=== PATIENT | female | born 1965 | race Caucasian/White ===

== ENCOUNTER 2016-10-31 16:37 | Emergency (ER) | payer OTHER ==
[~2016-10-31] VITALS: Ht 157.5 cm; Wt 90.9 kg
[2016-10-31 16:50] VITALS: BP 156/97; PULSE 102; RESP 18; O2SAT 96
[2016-10-31 18:31] LABS: BASOPHILS % (AUTO) 0.3 % (0-3); EOSINOPHILS % (AUTO) 0.3 % (0-5); MONOCYTES % (AUTO) 15.2 % (4-12); Mean Corpuscular Hemoglobin 30.1 pg (27.0-35.0); Mean Corpuscular Volume 91.6 fL (81-100); NEUTROPHILS % (AUTO) 52.6 % (40-74); Platelet Count 132 bil/L (150-400)
[2016-10-31] MEDS ORDERED: Thiamine Inj 100 MG, Folic Acid Inj 1 MG, Magnesium Sulfate 50% Inj 2 GM, Multivitamins... IV ONE ×5 (18:55)
--- NOTE | 2016-10-31 18:56 | DRSVH ---
PROCEDURE: X-RAY CHEST, TWO VIEWS ([id number]) INDICATIONS: cough, recent pneumonia TECHNIQUE: 2 views of the chest were acquired. COMPARISON: None. FINDINGS: Surgical changes and devices: None. Lungs and pleura: No pleural effusions or pneumothorax. Lungs are clear. Mediastinum: Mediastinal contours are normal. Heart size is normal. Bones and chest wall: No suspicious bony abnormalities. Soft tissues appear unremarkable. Previous vertebroplasties. IMPRESSION: No acute cardiopulmonary collagen. Dictated by: Leif Victor M.D. on 10/31/2016 at 18:48 Approved by: Leif Victor M.D. on 10/31/2016 at 18:48
[2016-10-31 19:02] LABS: Magnesium 1.9 mg/dL (1.6-2.6)
--- NOTE | 2016-10-31 19:24 | ED.REPORT ---
HPI-General Illness Date of Service Oct 31, 2016 ED Provider: Jax Vanegas DO Pt is a 51 year old female with a history of pneumonia, [place], Hep C, pancreatitis , chronic epistaxis, and cirrhosis who presents to the ED complaining of epistaxis onset last night. The pt was sent from [facility] with c/o cough with blood, hemoptysis, blurred vision, and hallucinations. Pt described her hallucinations as "suarez melting." She reports that she is going through alcohol withdrawals, but is not taking any withdrawal medication. The epistaxis started about 6 months ago with difficulty breathing. She has not seen an ENT specialist. Nursing Notes Stated Complaint: COUGH Chief Complaint: General Complaint Nursing Notes Reviewed: Yes Allergies: Coded Allergies: Penicillins (Verified Allergy, Severe, 10/31/16) Sulfa (Sulfonamide Antibiotics) (Verified Allergy, Severe, 10/31/16) codeine (Verified Allergy, Severe, 10/31/16) droperidol (Verified Allergy, Severe, 10/31/16) prochlorperazine (Verified Allergy, Severe, 10/31/16) zolpidem (Verified Allergy, Severe, 10/31/16) General Time Seen by MD: 18:41 Chief Complaint Other (Epistaxis) Hx Obtained From: Patient Arrived By: Walk-in Sudden in Onset?: No Onset Occurred: Onset unknown Symptom Duration: 9 - 12 hours Severity: Current: No pain currently Severity: Maximum: No pain Recent Healthcare: No recent doctor visit Similar Sx Previous: Yes Past Medical History Past Medical History Pneumonia [place] Hep C Pancreatitis Cirrhosis Epistaxis Past Surgical History Denies Smoking History Former Smoker Social History Goes to [facility] Alcohol Use: >5 per day Ambulatory Status Independent Review of Systems Full Review of Systems Eyes: Reports: Blurred bilateral Ears / Nose / Throat: Reports: Nose bleeding Respiratory: Reports: Hemoptysis, Prod cough, bloody Neurologic: Denies: Shaking Psychiatric: Reports: Hallucinations, visual Complete sys rev & neg: except as marked. Physical Exam Vital Signs Vital Signs Date Time Temp Pulse Resp B/P Pulse Ox O2 Delivery O2 Flow Rate FiO2 10/31/16 23:16 87 14 124/91 95 Room Air 10/31/16 20:09 36.6 82 16 129/72 94 Room Air 10/31/16 16:50 37.0 102 18 156/97 96 Room Air Initial VS: Reviewed Head / Eyes: Atraumatic, Normocephalic, PERRL ENT: Mucous membranes moist, Conjunctiva normal, No scleral icterus Neck: Supple, Full range of motion Respiratory: Breath sounds normal, Clear to auscultation, No respiratory distress Abdomen / GI: Soft, Non-tender Extremities: Vascular intact, Neuro intact Skin: Warm, Dry, No cyanosis Neurologic: Alert, Oriented, Nonfocal Psychiatric: Mood/affect normal, Behavior normal General/Constitutional: Awake, Alert, Cooperative, Not toxic appearing Mild tremor Cardiovascular: Heart rate NL, Regular rhythm, Heart sounds NL Heart Rate / Rhythm: Negative: Tachycardia Not hypertensive Neurologic: Speech NL, No motor deficits Oriented x4 PSYCHIATRIC: Non-specific visual hallucinations with suarez melting Interpretation & Diagnostics CT PULMONARY ANGIOGRAM: CONCLUSION: No evidence of pulmonary embolism. Mild cardiomegaly, diffuse vascular and interstitial prominence in the left lung, nonspecific, cannot rule out mild CHF, pneumonia, and/or edema. Cirrhosis with splenomegaly. Transmitted to the ED at 23:31 by Rachael Buenrostro M.D. Lab Results Interpretation Result Diagram: 10/31/16 1825 10/31/16 1825 Test 10/31/16 18:25 10/31/16 19:35 10/31/16 21:41 White Blood Count 3.4th/mm3 (3.8-10.1) Red Blood Count 4.39mil/mm3 (3.90-5.20) Hemoglobin 13.2g/dL (12.0-15.6) Hematocrit 40.2% (35.0-46.0) Mean Corpuscular Volume 91.6fL (81-100) Mean Corpuscular Hemoglobin 30.1pg (27.0-35.0) Mean Corpuscular Hemoglobin Concent 32.8% (32.0-37.0) Red Cell Distribution Width 18.0% (12.3-15.4) Platelet Count 132bil/L (150-400) Neutrophils (%) (Auto) 52.6% (40-74) Lymphocytes (%) (Auto) 31.6% (14-46) Monocytes (%) (Auto) 15.2% (4-12) Eosinophils (%) (Auto) 0.3% (0-5) Basophils (%) (Auto) 0.3% (0-3) Sodium Level 137mEq/L (134-144) Potassium Level 4.1mEq/L (3.5-5.2) Chloride Level 105mEq/L (97-108) Carbon Dioxide Level 20mmol/L (18-29) Blood Urea Nitrogen 14mg/dL (6-24) Creatinine 0.70mg/dL (0.57-1.00) Estimat Glomerular Filtration Rate 125mL/min (>59) Glucose Level 90mg/dL (60-99) Calcium Level 9.3mg/dL (8.5-10.1) Magnesium Level 1.9mg/dL (1.6-2.6) Total Bilirubin 0.7mg/dL (0.0-1.2) Aspartate Amino Transf (AST/SGOT) 92U/L (0-50) Alanine Aminotransferase (ALT/SGPT) 68U/L (0-32) Alkaline Phosphatase 125U/L (25-150) Ammonia 94ug/dL (18-53) Troponin T 0.010ug/L (0.0-0.011) Pro-B-Type Natriuretic Peptide 20.15pg/mL (0-249) Total Protein 8.8g/dL (6.4-8.4) Albumin 3.4g/dL (3.4-5.0) Procalcitonin 0.04ng/mL (0.00-0.08) Prothrombin Time 11.0sec (8.1-12.5) Prothromb Time International Ratio 1.03ratio D-Dimer 0.54mg/L FEU (<0.50) Hold Urine Received (Received) ECG Interpretation ECG Interpretation: Sinus rhythm with a rate of 84 Time: 18:37 Interpreted by: ED physician X-Ray Chest Interpretation Chest Xray Interpretation: IMPRESSION: No acute cardiopulmonary collagen. Dictated by: Leif Victor M.D. on 10/31/2016 at 18:48 View: AP & lat Interpretation / Wet Read by: Interpret - Radiologist Re-Eval/Medical Decision Med Decision/Clinical Course 51-year-old female came from [facility] where she checked herself in yesterday. She is coughing and she is coughed up some blood/trace hemoptysis. She is found to have pneumonia in the left upper lobe. It appears to be a bit atypical almost like edema. Heart failure labs are negative. PE was ruled out. Laboratory work is normal. Pneumonia severity index score is commensurate with outpatient treatment. Her vitals are normal. She is in no respiratory distress and she certainly needs to complete her course of detox. She received IV antibiotics in the emergency department. She will be placed on Zithromax Z-Michael. Recommended close outpatient follow-up. Ativan taper from the alcohol withdrawal. Repeat x-ray in 4-6 weeks. She is discharged in stable condition looking and feeling much better. Source of Hx: Old records Time of Eval: 00:57 Patient Status: Condition improved Re-Evaluation/Progress Note: Pt rechecked. She is feeling better. Discussed plan for discharge. She is excited to go back to [facility] to continue her detox. Will have close patient follow up. Pt understands and agrees with plan for discharge. F/U instructions and RTER warnings given. All questions addressed. Counseled Regarding: Diagnosis, Lab results, Need for follow-up, When/why to return to ED Discharge & Departure Shift Change Sign-Out Response to Therapy: Improved Primary Impression: Pneumonia Pneumonia type: due to unspecified organism Laterality: left Lung location : upper lobe of lung Qualified Code: J18.1 - Lobar pneumonia, unspecified organism Additional Impressions: Hemoptysis Alcohol withdrawal Complication of substance-induced condition: with perceptual disturbance Qualified Code: F10.232 - Alcohol dependence with withdrawal with perceptual disturbance Disposition: Home Discharge Condition All VS Reviewed: Yes Condition: Stable Patient Instructions: Alcohol Withdrawal (ED), Community Acquired Pneumonia (DC ), Hemoptysis (ED) Additional Instructions: The CAT scan shows edema and infection in your left lung. This is most likely pneumonia. Your heart failure labs were negative. Finished the Z-Michael. Complete the Ativan taper free alcohol withdrawal. I recommended to have a follow-up chest x-ray or chest CT in 4 weeks and after the resolution of symptoms. Set up a follow-up with her primary care physician. Return to the department for any problems or any new or worsening symptoms. Do not drive or drink alcohol or consume any other sedatives will taking the Ativan. Return if you have any shortness of breath or any new or worsening symptoms or feels not significantly improved in 24-48 hours. Regarding the nosebleed I'd like you to follow-up with our ear nose and throat referral as well. Referrals: Juan Carlos Antonio MD [facility] Res[facility] Scribe Attestation Portions of this note were transcribed by Kalina Kirk. I, Dr. Vanegas personally performed the history, physical exam and medical decision-making; I reviewed and confirmed the accuracy of the information in the transcribed note. Signed by: Leonor Montero, 10/31/16 and 21:30 copies to: [facility] Jax Vanegas DO Oct 31, 2016 19:24 Kalina Orantes Oct 31, 2016 20:12
[2016-10-31 20:09] VITALS: BP 129/72; PULSE 82; RESP 16; O2SAT 94
[2016-10-31 20:19] LABS: D-Dimer 0.54 mg/L FEU (<0.50); INR 1.03 ratio
[2016-10-31 23:16] VITALS: BP 124/91; PULSE 87; RESP 14; O2SAT 95
[2016-10-31] MEDS ORDERED: Cefepime Inj 2,000 MG in Dextrose 5% Minibag Plus 100 ML IV ONE (23:50)
[2016-11-01] MEDS ORDERED: oxyCODONE-Acetamin 5-325 mg Tablet PO ONE (00:10)
[2016-11-01 00:22] LABS: TROPONIN T 0.01 ug/L (0.0-0.011)
[2016-11-01] MEDS ORDERED: _Azithromycin 250 mg Tablet PO SCH (00:45)
[2016-11-01] MEDS ORDERED: _LORazepam 2 MG Tablet PO SCH (01:00)
[2016-11-01 01:30] VITALS: BP 110/98; PULSE 82; RESP 14; O2SAT 93
--- NOTE | 2016-11-01 08:10 | DRSVH ---
PROCEDURE: CT ANGIO CHEST PULMONARY EMBOLISM ([id number]) INDICATIONS: 51 year-old woman with hemoptysis and cough. TECHNIQUE: After the administration of intravenous contrast, 2 mm thick sections acquired from the pulmonary api maria antonia to the posterior costophrenic angles. 3-dimensional maximum intensity projection (MIP) coronal a nd sagittal reformats were then acquired through the thorax. For radiation dose reduction, the follo wing was used: automated exposure control, adjustment of mA and/or kV according to patient size. COMPARISON: [facility], CR, XR CHEST 2VW, 10/31/2016, 18:05. FINDINGS: Image quality: Excellent. Pulmonary arteries: Pulmonary arteries are normal in size, and demonstrate no intraluminal filling d efects to suggest central pulmonary embolism. Lungs and pleura: There is mild groundglass infiltrates in the left upper and lower lobes. No pleura l effusions or pneumothorax. Central and peripheral airways are patent. Mediastinum: Heart size is normal, without pericardial effusion. No mediastinal or hilar adenopathy . Thoracic aorta is normal in caliber and enhancement. Esophagus is normal in caliber. There is a s mall hiatal hernia. Bones and chest wall: There is mild compression fracture with vertebroplasty at T12. Ribs and thorac ic spine appear intact throughout. Thyroid gland is normal. No axillary or supraclavicular adenopat hy. Abdomen: Liver demonstrates nodular contour suggesting cirrhosis. Spleen is mildly enlarged. IMPRESSION: 1. No evidence for central pulmonary embolism. 2. Mild groundglass infiltrate in left upper and lower lobe. Recommend clinical correlation for pneum onia/pneumonitis. 3. Small hiatal hernia. 4. Nodular contour of liver suggesting cirrhosis. 5. Splenomegaly. 6. Mild T12 compression fracture with vertebroplasty. No significant discrepancy with the agricultural inspector radiology preliminary report. Dictated by: Luis A Marquez M.D. on 11/01/2016 at 8:01 Approved by: Luis A Marquez M.D. on 11/01/2016 at 8:08
== END 2016-11-01 02:01 | disposition home or self-care (01) ==
LOC: SED 16:37
DX: J18.1 Lobar pneumonia, unspecified organism (principal); R04.2 Hemoptysis; F10.232 Alcohol dependence with withdrawal with perceptual disturbance; Z87.01 Personal history of pneumonia (recurrent); Z86.19 Personal history of other infectious and parasitic diseases; Z87.19 Personal history of other diseases of the digestive system; Z87.891 Personal history of nicotine dependence; Z88.0 Allergy status to penicillin; Z88.2 Allergy status to sulfonamides; Z88.5 Allergy status to narcotic agent
CPT/HCPCS: 36415; 71020; 71275; 80053; 82075; 82140; 83735; 83880; 84145; 84484; 85025; 85378; 85610; 93005; 96361; 96365; 96372; 96375; 99285; J0692; J3360; J3475; J7030; Q9967

== ENCOUNTER 2016-11-15 13:53 | Emergency (ER) | payer OTHER ==
[2016-11-15 13:55] VITALS: BP 115/72; PULSE 100; RESP 15; O2SAT 100
[2016-11-15] MEDS ORDERED: OLANZapine Zydis ODT 5 mg Tablet ONE (14:17)
--- NOTE | 2016-11-15 14:24 | ED.REPORT ---
HPI-Psychiatric Illness Date of Service Nov 15, 2016 ED Provider: Bernabe Jain MD The patient is a 51 year old female who presents to the ED brought by [facility] for bizarre behavior. Upon interview, she tangentially reports, "there are two people in my brain: The survivor and the dominator. The survivor is winning." Pt is disoriented, does not know her last name, location, or date of . Prior to arrival, she wandered in a store, asked if she could use the bathroom and couldn't find her way out. She claims she has been clean from alcohol for 2 weeks. Pt states that she may, "bolt in front of a semi." She took a Seroquel this morning. Pt refuses to take any tranquilizers offered, she spits out one of her two Zyprexa, but swallows the other one. Pt has a hx of one prior ED visit on 10/31/16 for pneumonia. At the time, she came from [facility] and was withdrawing from alcohol when she was brought in. family phone # angel [phone] Nursing Notes Stated Complaint: MENTAL EVAL Chief Complaint: Psychiatric Complaint Nursing Notes Reviewed: Yes Allergies: Coded Allergies: Penicillins (Verified Allergy, Severe, 11/15/16) Sulfa (Sulfonamide Antibiotics) (Verified Allergy, Severe, 11/15/16) codeine (Verified Allergy, Severe, 11/15/16) droperidol (Verified Allergy, Severe, 11/15/16) prochlorperazine (Verified Allergy, Severe, 11/15/16) zolpidem (Verified Allergy, Severe, 11/15/16) General Time Seen by MD: 14:21 Chief Complaint Bizarre behavior Hx Obtained From: Patient Arrived By: Walk-in Onset Occurred: Just prior to arrival Symptom Duration: Since onset Recent Healthcare: No recent doctor visit, No recent hospitalization Similar Sx Previous: No Risk-Psychiatric Illness Suicide Risk Stratification RF Statements: Risk factors reviewed Past Medical History Past Medical History Pneumonia [place] Hep C Pancreatitis Cirrhosis Epistaxis Past Surgical History Denies Smoking History Former Smoker Social History Goes to [facility] Alcohol Use: >5 per day Ambulatory Status Independent Review of Systems Unable to Obtain ROS Patient condition, Mental status Physical Exam Initial Vital Signs Vital Signs (First) Date Time Temp Pulse Resp B/P Pulse Ox O2 Delivery O2 Flow Rate FiO2 11/15/16 13:55 36.7 100 15 115/72 100 Room Air Initial VS: Reviewed General/Constitutional: Awake Distress / Hydration: Positive: Distress severe Behavior: Positive: Anxious, Hyperventilating, Restless, Tearful Neurologic: No motor deficits Mental Status: Positive: Confused Abnormal Mood/Affect: Positive: Anxious, Fearful, Flight of ideas, Inappropriate Abnormal Thinking / Perception: Positive: Delusions - paranoid, Insight abnormal, Judgment abnormal, Tangential thinking Pt has to be cajoled and coaxed into the ED room Pt spits out one of her two Zyprexa, but swallows the other one Head / Eyes: Atraumatic, Normocephalic, PERRL, EOMI Respiratory / Chest: Atraumatic, Breath sounds NL, Breath sounds = bilat, No respiratory distress Cardiovascular: Heart rate NL, Regular rhythm, Heart sounds NL, No gallop, No murmurs, No rubs Abdomen: Atraumatic, Soft, Non-tender, BS normoactive Skin: No rash, Warm, Dry Neck: Atraumatic, Supple Upper Extremity / MS: Atraumatic, Inspection NL, No deformity Lower Extremity / Pelvis / MS: Atraumatic, Inspection NL, No deformity Interpretation & Diagnostics Lab Results Interpretation Result Diagram: 11/15/16 1551 11/15/16 1551 Test 11/15/16 14:49 11/15/16 15:51 Hold Urine Received (Received) White Blood Count 3.2th/mm3 (3.8-10.1) Red Blood Count 4.38mil/mm3 (3.90-5.20) Hemoglobin 12.9g/dL (12.0-15.6) Hematocrit 38.4% (35.0-46.0) Mean Corpuscular Volume 87.7fL (81-100) Mean Corpuscular Hemoglobin 29.5pg (27.0-35.0) Mean Corpuscular Hemoglobin Concent 33.6% (32.0-37.0) Red Cell Distribution Width 17.7% (12.3-15.4) Platelet Count curly/L (150-400) Neutrophils (%) (Auto) 46.0% (40-74) Lymphocytes (%) (Auto) 43.5% (14-46) Monocytes (%) (Auto) 7.7% (4-12) Eosinophils (%) (Auto) 2.2% (0-5) Basophils (%) (Auto) 0.3% (0-3) Sodium Level 137mEq/L (134-144) Potassium Level 3.4mEq/L (3.5-5.2) Chloride Level 105mEq/L (97-108) Carbon Dioxide Level 16mmol/L (18-29) Blood Urea Nitrogen 5mg/dL (6-24) Creatinine 0.55mg/dL (0.57-1.00) Estimat Glomerular Filtration Rate 166mL/min (>59) Glucose Level 84mg/dL (60-99) Calcium Level 8.9mg/dL (8.5-10.1) Total Bilirubin 0.4mg/dL (0.0-1.2) Aspartate Amino Transf (AST/SGOT) 68U/L (0-50) Alanine Aminotransferase (ALT/SGPT) 41U/L (0-32) Alkaline Phosphatase 89U/L (25-150) Total Protein 7.8g/dL (6.4-8.4) Albumin 3.5g/dL (3.4-5.0) Thyroid Stimulating Hormone (TSH) 0.969uIU/mL (0.450-4.500) Alcohols 225mg/dL (0-10) Lab Results Interpretation: Urine positive for TCAs and benzos Re-Eval/Medical Decision Med Decision/Clinical Course 51-year-old female who Left [facility] today, AGAINST MEDICAL ADVICE. She is being treated for alcoholism. While I did not smell alcohol on her breath, her behavior was erratic and histrionic and her blood alcohol was positive. The patient was unsafe on arrival at times attempting to elope. She required restraint and sedation, received Zyprexa 5, Ativan 2 and Haldol 10. Has been resting quietly since. Exam did not show any signs of trauma although the patient made some references being abducted which are not consistent with her history of leaving [facility] today. Re-Evaluation/Progress #1: Time of Eval: 14:48 Patient Status: Condition unchanged Re-Evaluation/Progress Note: Pt rechecked. She is still psychotic abd highly anxious. Plan for more medication. Re-Evaluation/Progress #2: Time of Eval: 15:00 Re-Evaluation/Progress Note: FACE TO FACE ASSESMENT. Pt has been declining blood draws, medication, and is threatening to leave the Emergency Department. Her agitation is increasing. I believe her safety requires restraint until we can evaluate more fully. Re-Evaluation/Progress #3: Time of Eval: 15:50 Patient Status: Condition improved, Mild relief Re-Evaluation/Progress Note: Pt rechecked. She is resting comfortably and much more relaxed. Pt is listening to music and cooperative to physical exam. Consultation : Call Returned at: 14:57 Note: Consultation with social work associate. Patient left [facility] against advice. The [facility] will not provide any other information on the patient. Pt has had dozens of visits to surrounding hospitals and EDs. Counseled Regarding: Diagnosis, Lab results Discharge & Departure Shift Change Sign-Out Patient Care Transferred: Yes Discussed Complaint(s): Yes Laboratory Evaluation: Back, reviewed by me Additonal Information: Seated, awaiting sobriety for re-eval. Bicarb of 16 noted. Impression: Primary Impression: Alcohol intoxication Discharge Condition All VS Reviewed: Yes Condition: Stable Referrals: [facility] (PCP) [facility] [place] Attestation Portion of this note were transcribed by Vivian Talbert. I, Dr. Jain, personally performed the history, physical exam, and medical decision-making: I reviewed and confirmed the accuracy for the information in the transcribed note. Signed by: karla Arce, 11/15/16 1800 copies to: [facility] Bernabe Jain MD Nov 15, 2016 14:24 Vivian Talbert Nov 15, 2016 14:37
[2016-11-15] MEDS ORDERED: Haloperidol 5 mg/mL Inj IM ONE (14:50)
[2016-11-15] MEDS ORDERED: OLANZapine Zydis ODT 5 mg Tablet PO ONE (14:50)
[2016-11-15 15:57] LABS: BASOPHILS % (AUTO) 0.3 % (0-3); EOSINOPHILS % (AUTO) 2.2 % (0-5); MONOCYTES % (AUTO) 7.7 % (4-12); Mean Corpuscular Hemoglobin 29.5 pg (27.0-35.0); Mean Corpuscular Volume 87.7 fL (81-100)
[2016-11-15 19:05] VITALS: BP 106/68; PULSE 80; RESP 16; O2SAT 95
[2016-11-15] MEDS ORDERED: 0.9% Sodium Chloride 1,000 ML IV ONE (20:35)
[2016-11-15] MEDS: Sodium Chloride LOK Flush 10 mL Syringe IVFLUSH SCH (22:59)
[2016-11-15 23:12] VITALS: BP 114/76; PULSE 92; O2SAT 92
[2016-11-16 06:31] VITALS: BP 128/85; PULSE 112; O2SAT 95
[2016-11-16] MEDS: Sodium Chloride LOK Flush 10 mL Syringe IVFLUSH SCH (06:44)
[2016-11-16] MEDS ORDERED: OLANZapine Zydis ODT 5 mg Tablet PO ONE (06:55)
[2016-11-16 09:59] VITALS: BP 127/81; PULSE 108; RESP 18; O2SAT 98
[2016-11-16 14:00] VITALS: BP 144/91; PULSE 119; RESP 15; O2SAT 99
--- NOTE | 2016-11-16 16:12 | NUR ---
Mental Health Evaluation Sarah Coello 11/16/2016 Reason for Hospital visit: Disorganized behavior Precipitating Problem: Pt presented to the ED via police for disorganized behavior and SI. Pt was intoxicated at the time of arrival and allowed to sober overnight. Pt's BAL was 0 when [employer]UC[employer] TEACHER met with her at bedside to complete this assessment. Pt reported that she was in the ED because she felt that her mind was going crazy. Pt indicated that her thinking has been disorganized and she has been having a hard time completing simple tasks. Pt explained that she has also been experiencing visual hallucinations for the last few days. Pt described seeing spots and watching the suarez move. Pt denied current auditory hallucinations. Pt explained that she was inpatient at [facility] until she left [facility] yesterday. Pt reported that she left because her hallucinations were becoming too bad for her. Pt expressed some situational SI with a plan to cut her wrists with a glass bottle if she couldn't get home. Pt stated, "I don't have a bottle to do it with and it really depends on what happens when I leave here." Pt explained that she would feel able to remain safe if she could make it back to her home in [place]. Pt reported that she has been experiencing increasing nightmares that interrupt her sleep for the last three months. Pt indicated a decreased appetite due to pancreatitis that has been causing her pain. Pt did not report or identify any weight loss associated with her decreased appetite. Pt reported a decline in ADLs that she attributed to increased depression. Pt reported that she hasn't been able to change or wash clothes because she doesn't have any other clothes up here and explained that she hasn't been showering daily because she has low motivation and decreased energy. Mental Status: Pt is a 51 year old female. Pt is moderately groomed and dressed in hospital gowns. Pt makes appropriate eye contact. Pt's affect is blunted and her mood is depressed and anxious. Pt's speech is low in volume but normal in rate and tone. Pt is oriented to self, place and day of the week. Pt is oriented to situation. Pt's thought process is somewhat confused but linear. Pt has a hard time fully answering questions without clear and repeated direction. Pt is easily distracted. Pt endorses SI and VH. Pt denies HI and AH. Psychiatric Hx: Pt reported a recent hospitalization to [facility] in [place] but was unable to report exact dates. Pt is not enrolled in outpatient mental health treatment. Pt reported a history of PTSD and Bipolar Disorder CD Hx: Pt reported a history of ETOH use. Pt left AMA from [facility] on 11/15/2016. Pt reported that she is enrolled in outpatient CD treatment with [facility] and identified Bonifacio Marvin as her crop adjuster there. [employer] TEACHER left a message for Bonifacio Marvin and received a return call from Yusef explaining that Bonifacio arranged for Pt to be admitted to [facility] on 10/26/2016 directly from [facility] in [place] where she had been admitted. Legal Hx:Pt reported no legal history. Yusef with [facility] reported that Pt was recently jailed in [facility] due to abuse of the ED system in the area. Yusef also explained that Pt was court ordered to follow through with rehab at [facility] and may now be facing additional ramifications related to leaving AMA. Diagnosis: F31.9 - Bipolar I Disorder, Unspecified F43.10 - Posttraumatic Stress Disorder Disposition: Pt endorses current SI with a plan to slit her wrists with a broken bottle. Pt reported that her SI was dependent on her ability to get home to [place]. Pt explained that she felt able to be safe if she could get home today. Pt reported that she does not have current access to a broken bottle with which to cut her wrists. Pt denied HI and AH. Pt endorsed VH. Pt is not gravely disabled due to a mental illness. Pt does not pose an imminent risk of harm to herself or others and does not meet the necessary acuity for inpatient psychiatric hospitalization at this time. [employer]UC[employer] TEACHER and Pt counted the money that she has with her today and determined that it would be enough for a [employer] bus ticket to [place] and a [employer] train to [place] where her family could pick her up. [employer]UC[employer] TEACHER spoke with Chantell at the [facility] and confirmed that Pt could afford a ticket as well as the departure times. [employer] EDUC[employer] TEACHER conferred with ED MD and the decision was made to discharge Pt to the transit center with written instructions regarding travel home. MIDD[employer] EDUCATION TEACHER provided Pt with written instructions and a [employer] bus pass so that Pt could travel to the transit center from [facility]. Pt expressed that she was in agreement with this plan. Pt to return home. Pt to return to the ED if she feels unable to remain safe. Savannah Cook, [employer] EDUCATION TEACHER, AAC
== END 2016-11-16 14:27 | disposition home or self-care (01) ==
LOC: SED 13:53
DX: F10.220 Alcohol dependence with intoxication, uncomplicated (principal); F43.0 Acute stress reaction; I25.2 Old myocardial infarction; Y90.7 Blood alcohol level of 200-239 mg/100 ml; Z87.01 Personal history of pneumonia (recurrent); Z87.891 Personal history of nicotine dependence; Z88.0 Allergy status to penicillin; Z88.2 Allergy status to sulfonamides; Z88.5 Allergy status to narcotic agent; Z88.8 Allergy status to other drugs, medicaments and biological substances
CPT/HCPCS: 36415; 80048; 80053; 82075; 84443; 85025; 96372; 99285; G0480; J1630; J2060